=== PATIENT | female | born 1980 | race Caucasian/White ===

== ENCOUNTER 2017-09-26 21:41 | Emergency (ER) | payer SELFPAY ==
[2017-09-26] MEDS ORDERED: Ketorolac 60 MG/2 ML SDV IM ONE (22:00)
--- NOTE | 2017-09-26 22:04 | EDM.PDOC ---
ED HPI GENERAL MEDICAL PROBLEM - General Chief Complaint: Back Pain or Injury Stated Complaint: LT LEG NUMB/BACK PAIN Time Seen by Provider: 09/26/17 21:48 - History of Present Illness INITIAL COMMENTS - FREE TEXT/NARRATIVE: HISTORY AND PHYSICAL: History of present illness: Patient 37-year-old female with history of chronic back pain she's had multiple back surgeries including spinal fusion this was all done in [place] in [place] she comes in now for evaluation and medical screening regarding her pain she states she is using nothing but Motrin she has seen physical therapist she has declined more significant pain management and a formal pharmaceuticals in the past they have talked to her about revisiting surgical options at this time she is not interested she denies any new weakness she has had some paresthesia that has also been an intermittent subacute problem she's had no incontinence or retention bowel or bladder or other complaints. Review of systems: As per history of present illness and below otherwise all systems reviewed and negative. Past medical history: As per history of present illness and as reviewed below otherwise noncontributory. Surgical history: As per history of present illness and as reviewed below otherwise noncontributory. Social history: No reported history of drug or alcohol abuse. Family history: As per history of present illness and as reviewed below otherwise noncontributory. Physical exam: HEENT: Atraumatic, normocephalic, pupils reactive, negative for conjunctival pallor or scleral icterus, mucous membranes moist, throat clear, neck supple, nontender, trachea midline. Lungs: Clear to auscultation, breath sounds equal bilaterally, chest nontender. Heart: S1S2, regular, negative for clicks, rubs, or JVD. Abdomen: Soft, nondistended, nontender. Negative for masses or hepatosplenomegaly. Negative for costovertebral tenderness. Pelvis: Stable nontender. Genitourinary: Deferred. Rectal: Deferred. Extremities: Atraumatic, negative for cords or calf pain. Neurovascular unremarkable. Neuro: Awake, alert, oriented. Cranial nerves II through XII unremarkable. Cerebellum unremarkable. Motor and sensory unremarkable throughout. Exam nonfocal. Back: Patient is able to stand on her toes back on her heels deep tendon reflexes are unremarkable. Motor and sensory are unremarkable she has some paravertebral tenderness thoracolumbar spine no vertebral body or point tenderness Diagnostics: CT lumbar spine UA hCG Therapeutics: Toradol 60 mg IM Impression: #1 chronic back pain with acute exacerbation Definitive disposition and diagnosis as appropriate pending reevaluation and review of above. Treatments [place]: Reports: NSAIDS low back Pain Score (Numeric/FACES): 9 - Related Data Allergies Allergy/AdvReac Type Severity Reaction Status Date / Time Sulfa (Sulfonamide Allergy Itching Verified 09/26/17 21:50 Antibiotics) Home Meds: Home Meds . [No Known Home Meds] 09/26/17 [History] Past Medical History Gastrointestinal History: Reports: Other (See Below) Other Gastrointestinal History: cronh's ds - Past Surgical History Musculoskeletal Surgical History: Reports: Other (See Below) Other Musculoskeletal Surgeries/Procedures:: spinal fusion Social & Family History - Family History Family Medical History: Noncontributory - Tobacco Use Smoking Status *Q: Current Every Day Smoker Years of Tobacco use: 20 Packs/Tins Daily: 1 - Recreational Drug Use Recreational Drug Use: No ED ROS GENERAL - Review of Systems Review Of Systems: ROS reveals no pertinent complaints other than HPI. ED EXAM, GENERAL - Physical Exam Exam: See Below (See dictation) Course - Vital Signs Last Recorded V/S: Last Vital Signs Temp 36.1 C 09/26/17 21:41 Pulse 98 09/26/17 21:41 Resp 18 09/26/17 21:41 BP 134/80 09/26/17 21:41 Pulse Ox 99 09/26/17 21:41 - Orders/Labs/Meds Meds: Medications Discontinued Medications Generic Name Dose Route Start Last Admin Trade Name Freq PRN Reason Stop Dose Admin Ketorolac Tromethamine 60 mg 09/26/17 22:00 09/26/17 23:40 Toradol IM 09/26/17 22:01 Not Given ONETIME ONE Departure - Departure Time of Disposition: 23:59 Disposition: Against Medical Advice 07 Condition: Undetermined Clinical Impression: Chronic back pain - Discharge Information Referrals: PCP,Not In Area [Primary Care Provider] - Forms: ED Department Discharge
== END 2017-09-26 22:27 | disposition left against medical advice (07) ==
LOC: MW.ED 21:41
DX: G89.29 Other chronic pain (principal); M54.5 Low back pain; F17.210 Nicotine dependence, cigarettes, uncomplicated; Z88.2 Allergy status to sulfonamides
CPT/HCPCS: 99283; 99284-25